=== PATIENT | female | born 1960 | race African-American/Black ===

== ENCOUNTER 2017-02-01 23:50 | Emergency (ER) | payer MEDICARE ==
[~2017-02-01 23:50] MED LIST: AMB10 PO; LATUDA40 MG PO; MSCONT60 PO; PERCOCET1 TA2 PO; V2 PO; XANAX1 MG PO
[2017-02-02 02:00] LABS: INFLUENZA A SCREEN POSITIVE (NEGATIVE); INFLUENZA B SCREEN NEGATIVE (NEGATIVE)
[2017-02-02 02:11] LABS: BASOPHILS 0.1 %; BASOPHILS ABSOLUTE 0.01 10/3/uL (0.0-0.16); EOSINOPHILS 0.1 %; EOSINOPHILS ABSOLUTE 0.01 10/3/uL (0.0-0.53); ER CBC TAT 0 Hrs 05 Mins; HEMATOCRIT 37.7 % (36.0-48.0); HEMOGLOBIN 12.7 g/dL (12.0-16.0); IMMATURE GRANULOCYTES 0.1 %; IMMATURE GRANULOCYTES ABSOLUTE 0.01 10/3/uL (0.0-0.11); LYMPHOCYTES 10.6 %; LYMPHOCYTES ABSOLUTE 0.72 10/3/uL (0.67-4.30); MEAN CORPUS HGB CONC 33.7 g/dL (32.0-36.0); MEAN CORPUSCULAR HEMOGLOB 28.1 pg (26.0-34.0); MEAN CORPUSCULAR VOLUME 83.4 fL (80-100); MEAN PLATELET VOLUME 10.5 fL (9.2-13.0); MONOCYTES 7.8 %; MONOCYTES ABSOLUTE 0.53 10/3/uL (0.21-1.20); NEUTROPHILS 81.3 %; NEUTROPHILS ABSOLUTE 5.53 10/3/uL (2.02-8.40); PLATELET COUNT 248 10/3/uL (150-400); RED CELL COUNT 4.52 10/6/uL (4.0-5.6); WHITE BLOOD CELLS 6.8 10/3/uL (4.5-10.5)
[2017-02-02 02:23] LABS: MANUAL DIFF NO %
[2017-02-02 02:26] LABS: BUN (BLOOD UREA NITROGEN) 14 MG/DL (6-23); CALCIUM, SERUM 8.8 MG/DL (8.5-10.4); CHLORIDE, SERUM 103 MMOL/L (96-112); CO2 (CARBON DIOXIDE) 26 MMOL/L (24-34); GFR AFRICAN AMERICAN 58 ML/MIN (>=60); GFR NON AFRICAN AMERICAN 50 ML/MIN (>=60); POTASSIUM, SERUM 3.3 MMOL/L (3.5-5.3); SODIUM, SERUM 139 MMOL/L (135-148)
[2017-02-02 02:27] LABS: GLUCOSE, SERUM 176 MG/DL (60-99)
[2017-02-20] MEDS ORDERED: NORV10 PO (12:33)
[2017-02-20] MEDS ORDERED: WELLXL150 PO (12:35)
[2017-02-20] MEDS ORDERED: ASAB PO (12:38)
[2017-02-20] MEDS ORDERED: VRAYLAR PO (12:38)
[2017-02-20] MEDS ORDERED: JENTADUETO 2.51 EAC2 PO (12:55)
[2017-02-20] MEDS ORDERED: ATORVASTATIN (12:56)
[2017-05-11] MEDS ORDERED: LIPITOR20 PO (11:52)
== END 2017-02-02 03:22 | disposition home or self-care (01) ==
LOC: ER 23:50
PROVIDERS: Nurse Practitioner Acute Care
DX: J10.1 Influenza due to other identified influenza virus with other respiratory manifestations (principal); I10 Essential (primary) hypertension; F32.9 Major depressive disorder, single episode, unspecified; E11.9 Type 2 diabetes mellitus without complications; Z90.710 Acquired absence of both cervix and uterus; Z88.6 Allergy status to analgesic agent; Z88.0 Allergy status to penicillin; Z88.5 Allergy status to narcotic agent; Z79.899 Other long term (current) drug therapy
CPT/HCPCS: 71020; 80048; 85025; 87804; 94640; 96374; 99284; A9270-GY; J2405

== ENCOUNTER 2017-02-23 11:10 | Day surgery (SDC) | payer MEDICARE ==
--- NOTE | ~2017-02-23 | OP ---
Record Of Operation [facility] [address] [place]. [address] NAME: CHRISTIAN HANLEY : 60 STATUS : [facility]#: [id number] AGE: 57 ADM/REG DATE : 02/23/17 MR#: [id number] REPORT SERV DATE: 02/23/17 DICTATED BY: LANCE FOSTER III DATE: 02/23/17 REPORT STATUS : Draft TRANSCRIBED BY: MODL DATE: 02/23/17 DATE OF PROCEDURE: 02/23/2017 PREOPERATIVE DIAGNOSES: 1. Anterior labral tear, right shoulder, with rotator cuff tendinopathy, and impingement syndrome. 2. Adhesive capsulitis, right shoulder. POSTOPERATIVE DIAGNOSES: 1. Anterior labral tear, right shoulder, with rotator cuff tendinopathy, and impingement syndrome. 2. Adhesive capsulitis, right shoulder. SURGICAL PROCEDURE PERFORMED: 1. Arthroscopic debridement of anterior labral tear. 2. Arthroscopic decompression, acromioplasty, and subacromial bursectomy, right shoulder. 3. Manipulation of right shoulder under anesthesia, secondary to adhesive capsulitis. SURGEON: Lance Foster M.D. SECRETARY OF STATE: Gagan Harvey. ANESTHESIA: General. ANTIBIOTICS: Ancef 2 g. COMPLICATIONS: None. POSITION: Beach chair. CRYSTALLOIDS: 500 mL. PROCEDURE IN DETAIL: The patient was brought to the operative room, placed on the table in supine position, and general anesthesia was induced. Assuring good anesthesia, manipulation of the right shoulder was carried out under anesthesia, obtaining full abduction from about 7 degrees to an overhead position of 120, external rotation was improved from 70 degrees to 90 to 100 degrees, notable audible lysis of adhesions was carried out. The internal rotation was obtained as well. External rotation was obtained with arm at side all causing release of the capsule. The patient was in a beach chair type position and the right shoulder and upper extremity was prepped and draped in the usual sterile fashion. This Spider pneumatic arm baker was utilized to hold the right upper extremity. Assuring good anesthesia, standard posterior portal was provided to the glenohumeral joint. It was inflated with sterile normal saline by means of arthroscopic pump. Bloody adhesions were visualized. The articular surfaces were normal. There appeared to be a tear to the anterior labrum. Subscapularis appeared normal. The biceps appeared normal, its attachment appeared normal. The undersurface of the rotator cuff complex appeared normal. A switching Record Of Operation [place] [id number] [facility] [place]. [address] NAME: CHRISTIAN HANLEY : 60 STATUS : [facility] PAT#: [id number] AGE: 57 ADM/REG DATE : 02/23/17 MR#: [id number] REPORT SERV DATE: 02/23/17 DICTATED BY: LANCE FOSTER III DATE: 02/23/17 REPORT STATUS : Draft TRANSCRIBED BY: ABBIE DATE: 02/23/17 stick was used to create an anterior portal. Old blood adhesions and clots were removed. The anterior labrum was torn, this was not a repairable tear, but one that just needed to be debrided with a 4.5 shaver. This was carried out to the anterior portal. The arthroscope was then switched to the subacromial space. A straight lateral portal was created. A 4.5 shaver was used to perform a subacromial bursectomy. The rotator cuff complex on the bursal surface side appeared normal. The periosteum in the undersurface of the acromion was cauterized with electrocautery and the contour wand by [employer]. High-speed bur was then used to perform a decompression, acromioplasty. Thickened bursal tissue was further debrided with a 4.5 shaver. No further rotator cuff complex tears were noted. Thorough irrigation was carried out. Instrumentation was removed. Ports were closed with 4-0 Monocryl, benzoin, Steri-Strips, Aquacel dressing, and a DonJoy sling. The patient tolerated the procedure well and brought to recovery in satisfactory condition. MAYRA/ABBIE Lance Foster III, M.D. / [id number] CC: Alexis Aguilar III, M.D.
[~2017-02-23 11:10] MED LIST changes: +ASAB PO; +ATORVASTATIN; +JENTADUETO 2.51 EAC2 PO; +NORV10 PO; +VRAYLAR PO; +WELLXL150 PO
[2017-02-23 11:50] LABS: HEMATOCRIT 38.1 % (36.0-48.0); HEMOGLOBIN 12.9 g/dL (12.0-16.0)
[2017-02-23 12:02] LABS: BUN (BLOOD UREA NITROGEN) 16 MG/DL (6-23); CALCIUM, SERUM 9.2 MG/DL (8.5-10.4); CHLORIDE, SERUM 106 MMOL/L (96-112); CO2 (CARBON DIOXIDE) 26 MMOL/L (24-34); CREATININE 1.16 MG/DL (0.55-1.02); GFR AFRICAN AMERICAN 61 ML/MIN (>=60); GFR NON AFRICAN AMERICAN 52 ML/MIN (>=60); SODIUM, SERUM 143 MMOL/L (135-148)
[2017-02-23 12:04] LABS: GLUCOSE, SERUM 108 MG/DL (60-99)
[2017-05-11] MEDS ORDERED: LIPITOR20 PO (11:52)
== END 2017-02-23 17:31 | disposition home or self-care (01) ==
LOC: SDC 11:10
PROVIDERS: Orthopaedic Surgery
PROC: 0LQ14ZZ Repair Right Shoulder Tendon, Percutaneous Endoscopic Approach (ICD-10-PCS; principal; 2017-02-23 12:45)
PROC: 0RNJ4ZZ Release Right Shoulder Joint, Percutaneous Endoscopic Approach (ICD-10-PCS; 2017-02-23 12:45)
PROC: 0RBJ4ZZ Excision of Right Shoulder Joint, Percutaneous Endoscopic Approach (ICD-10-PCS; 2017-02-23 12:45)
DX: S43.421A Sprain of right rotator cuff capsule, initial encounter (principal); M75.91 Shoulder lesion, unspecified, right shoulder; E66.01 Morbid (severe) obesity due to excess calories; G47.33 Obstructive sleep apnea (adult) (pediatric); I10 Essential (primary) hypertension; E11.9 Type 2 diabetes mellitus without complications; D64.9 Anemia, unspecified; M19.90 Unspecified osteoarthritis, unspecified site; M50.33 Other cervical disc degeneration, cervicothoracic region; Z90.710 Acquired absence of both cervix and uterus; F20.9 Schizophrenia, unspecified; Z88.6 Allergy status to analgesic agent; Z88.0 Allergy status to penicillin; Z88.8 Allergy status to other drugs, medicaments and biological substances; Z91.09 Other allergy status, other than to drugs and biological substances; Z79.82 Long term (current) use of aspirin; Z79.899 Other long term (current) drug therapy
CPT/HCPCS: 80048; 82962; 85014; 85018; 93005; A9270-GY; J0690; J1030; J2175; J2250; J2270; J2405; J2710; J3010